=== PATIENT | male | born 1975 | race Caucasian/White ===

== ENCOUNTER 2021-11-04 15:39 | Emergency (ER) | payer BC ==
[~2021-11-04] VITALS: Ht 180.3 cm; Wt 95.3 kg
[2021-11-04 15:44] VITALS: BP 147/83
[2021-11-04] MEDS ORDERED: LIDOCAINE/EPI 1% 1:100000 20 ML VIAL INJ ONE (15:50)
--- NOTE | 2021-11-04 15:56 | NUR ---
46/M BIB SELF WITH C/O CHIN LACERATION. STATES HE WAS WALKING UP AT [place] AND SLIPPED AND FELL IN THE SNOW AND HIT HIS CHIN ON A ROCK. PATIENT DENIES LOC, HEADACHE OR DIZZINESS, BLEEDING CONTROLLED WITH PRESSURE.
--- NOTE | 2021-11-04 16:25 | NUR ---
Patient discharged with v/s stable. Written and verbal after care instructions about facial laceration and laceration care given and explained. Patient verbalized understanding. Ambulatory with steady gait. All questions addressed prior to discharge. Advised to follow up with PMD.
== END 2021-11-04 16:25 | disposition home or self-care (01) ==
LOC: MED 15:39
DX: S01.81XA Laceration without foreign body of other part of head, initial encounter (principal); W45.8XXA Other foreign body or object entering through skin, initial encounter; Y93.89 Activity, other specified; Y92.89 Other specified places as the place of occurrence of the external cause; Y99.8 Other external cause status
CPT/HCPCS: 12011; 99282; J2001

== ENCOUNTER 2021-11-13 17:28 | Emergency (ER) | payer BC ==
[~2021-11-13] VITALS: Ht 180.3 cm; Wt 94.3 kg
[2021-11-13 17:45] VITALS: BP 137/78
[2021-11-13 18:15] VITALS: BP 137/78
--- NOTE | 2021-11-13 18:15 | NUR ---
NO NURSING INTERVENTIONS IMPLEMENTED. Patient discharged with v/s stable. Written and verbal after care instructions given and explained. Patient alert, oriented and verbalized understanding of instructions. Ambulatory with steady gait. All questions addressed prior to discharge. ID band removed. Patient advised to follow up with PMD. Opportunity to ask questions provided and answered.
== END 2021-11-13 18:15 | disposition home or self-care (01) ==
LOC: MED 17:28
DX: S01.419D Laceration without foreign body of unspecified cheek and temporomandibular area, subsequent encounter (principal); Z48.00 Encounter for change or removal of nonsurgical wound dressing; F14.10 Cocaine abuse, uncomplicated; X58.XXXD Exposure to other specified factors, subsequent encounter
CPT/HCPCS: 99281